=== PATIENT | male | born 1960 | race Caucasian/White ===

== ENCOUNTER 2016-12-04 17:16 | Outpatient (CLI) | payer MEDICAID | END 2016-12-04 17:17 | disposition home or self-care (01) | DX: M79.662 Pain in left lower leg (principal); R22.42 Localized swelling, mass and lump, left lower limb ==

== ENCOUNTER 2017-08-03 10:37 | Outpatient (CLI) | payer MEDICAID ==
--- NOTE | 2017-08-03 11:50 | XRAY Report ---
BILATERAL HIPS AND PELVIS: 08/03/2017 CLINICAL INDICATION: Bilateral deep pain. FINDINGS: Frontal view of the hips and pelvis and frogleg lateral views of the bilateral hips demons trate no evidence of fracture or dislocation. The joint spaces are preserved. No radiopaque foreign b louisa is seen in the soft tissues. IMPRESSION: NORMAL HIPS AND PELVIS. JOB #: [id number] EXT JOB #:[id number]
== END 2017-08-03 10:38 | disposition home or self-care (01) ==
LOC: DI.S 10:37
PROVIDERS: ATTEND Family Medicine
DX: M25.552 Pain in left hip (principal); M25.551 Pain in right hip
CPT/HCPCS: 73521

== ENCOUNTER 2018-04-20 22:48 | Emergency (ER) | payer MEDICAID ==
--- NOTE | 2018-04-21 00:14 | ED Physician Documentation ---
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 patient is right hand dominant. Review of Systems Skin: reports: Laceration (s), Bite / sting Musculoskeletal: reports: Extremity pain Neurologic: denies: Focal weakness, Numbness PD PAST MEDICAL HISTORY - Past Medical History Past Medical History: No - Past Surgical History Past Surgical History: Yes General: Appendectomy Ortho: Arthroscopic surgery - Present Medications Home Medications: Ambulatory Orders Medication Instructions Recorded Confirmed Amox/Clav 875/125 [Augmentin] 1 tab PO BID 04/22/18 04/22/18 Liothyronine Sodium 5 mcg PO BID 04/22/18 04/22/18 - Allergies Allergies/Adverse Reactions: Allergies Allergy/AdvReac Type Severity Reaction Status Date / Time Penicillins Allergy Unknown Verified 04/22/18 15:36 - Social History Does the pt smoke?: No Smoking Status: Never smoker Does the pt drink ETOH?: Yes Does the pt have substance abuse?: No - Immunizations Immunizations are current?: Yes - POLST Patient has POLST: No PD ED PE NORMAL - Vitals Vital signs reviewed: Yes - General General: Alert and oriented X 3, No acute distress, Well developed/nourished - Extremities Extremities: Normal ROM s pain, No edema - Neuro Neuro: No motor deficit, No sensory deficit PD ED PE EXPANDED - Extremities LIZBETH UE/Hands Visual: 1 - laceration (1 cm length) 2 - laceration (1.5 cm length) Results - Vitals Vitals: Oxygen O2 Source Room air Procedures - Laceration (location) Upper extremity left Length in cm: 2.5 (two lacerations, total of 2.5 cm) Wound type: Linear, Into subcut fat, Clean Neurovascular status: Sensory intact, Motor intact, Vascular intact Tendon involvement: Tendon intact Anesthesia: Lidocaine 1% Wound Preparation: Chlorhexadine, Irrigated copiously NS (500 cc sterile NS), Wound explored Skin layer closure: Nylon, Running, Size #-0 - enter number (4-0) Other: Patient tolerated well, No complications, Neurovascular intact, Tetanus UTD Complexity: Simple PD MEDICAL DECISION MAKING - ED course Complexity details: considered differential, d/w patient - Sepsis Event Vital Signs: Oxygen O2 Source Room air Departure - Departure Disposition: 01 Home, Self Care Clinical Impression: Dog bite of arm Qualifiers: Encounter type: initial encounter Laterality: left Qualified Code(s): S41.152A - Open bite of left upper arm, initial encounter Condition: Good Instructions: ED Bite Dog, ED Laceration Ext Sutr Stap Tape Follow-Up: Rosie Velazquez MD [Primary Care Provider] - (7-8 days for suture removal ) Discharge Date/Time: 04/21/18 01:26
[2018-04-21] MEDS ORDERED: AMOX/CLAV 875 MG/125 MG TABLET PO STA (00:26)
[2018-04-21] MEDS ORDERED: LIDOCAINE 1% 2 ML VIAL SUBQ STA (00:26)
[2018-04-21] MEDS ORDERED: BACITRACIN OINT TOP ONE (01:25)
[2018-04-21 01:26] VITALS: BP 123/88
== END 2018-04-21 01:26 | disposition home or self-care (01) ==
LOC: ED 22:48
DX: S51.852A Open bite of left forearm, initial encounter (principal); W54.0XXA Bitten by dog, initial encounter
CPT/HCPCS: 99283

== ENCOUNTER 2018-04-21 15:43 | Emergency (ER) | payer MEDICAID ==
[2018-04-21 16:05] VITALS: BP 148/82
[2018-04-21] MEDS ORDERED: ceFAZolin 1 GM VIAL IM STA (17:11)
--- NOTE | 2018-04-21 17:17 | ED Physician Documentation ---
History of Present Illness - Stated complaint Stated Complaint: SUTURE/DOG BITE IRRITATION - Chief complaint Chief Complaint: Wound - Additonal information Additional information: hx from pt 57 male dog bite seen in ED last night - no EMR note yet per pt was a pet dog and immunized his wound was already a but red and swollen because it was deep it was well irrigated and sutured and pt was warned of risk of infection pt had listed penicillin as an allergy but states he does not actually know what his rxn is, something as a baby, he was given augmentin and tolerated it well he thinks his last tdap was in this ED 2 yr ago returns today for increased redness and streak up his arm no fever Review of Systems Constitutional: denies: Fever Skin: reports: Bite / sting PD PAST MEDICAL HISTORY - Past Surgical History Past Surgical History: Yes General: Appendectomy Ortho: Arthroscopic surgery - Present Medications Home Medications: Ambulatory Orders Medication Instructions Recorded Confirmed Meds For Thyroid 04/20/18 Amox/Clav 875/125 [Augmentin] 1 each PO Q12H #13 tablet 04/21/18 - Allergies Allergies/Adverse Reactions: Allergies Allergy/AdvReac Type Severity Reaction Status Date / Time Penicillins Allergy Unknown Verified 04/20/18 23:14 - Social History Does the pt smoke?: No Smoking Status: Never smoker Does the pt drink ETOH?: Yes Does the pt have substance abuse?: No - Immunizations Immunizations are current?: Yes - POLST Patient has POLST: No PD ED PE NORMAL - Vitals Vital signs reviewed: Yes - Neck Neck: Supple, no meningeal sign - Cardiac Cardiac: RRR - Respiratory Respiratory: No respiratory distress - Extremities Extremities: Other (L FA two sutured bites with surrounding erythema and streaks to mid bicep but no fluctance or drainange) Results - Vitals Vitals: Vital Signs - 24 hr 04/21/18 15:58 Temperature 36.7 C Heart Rate 98 Respiratory 16 Rate Blood Pressure 148/82 H O2 Saturation 97 Oxygen O2 Source Room air PD MEDICAL DECISION MAKING - ED course ED course: MSE performed infected dog bite despite PO antibiotics told pt will try IM ancef, and he should continue PO augmentin but needs rpt exam tomorrow and if not better / worse will need sutures removed , wounds opened to drain and IV antibiotics - Sepsis Event Vital Signs: Vital Signs - 24 hr 04/21/18 15:58 Temperature 36.7 C Heart Rate 98 Respiratory 16 Rate Blood Pressure 148/82 H O2 Saturation 97 Oxygen O2 Source Room air Departure - Departure Disposition: 01 Home, Self Care Clinical Impression: Infected dog bite Condition: Good Instructions: ED Bite Dog Follow-Up: Rosie Velazquez MD [Primary Care Provider] - Comments: The bites have become infected We are going to try giving you a shot of antibiotics. But you need to be seen tomorrow for a recheck If you are not better or are getting worse, the sutures will need to be removed and the wounds opened up to drain and you will need to be admitted for IV antibiotics - For the recheck, you can either see your PMD or come back to the ER to see me any time after 7 AM. But you must be seen early tomorrow Take your next augmentin at midnight and then next at 10 AM to get onto a more reasonable time schedule I checked and the computer records from 2016 state you got a tetanus shot then
== END 2018-04-21 17:32 | disposition home or self-care (01) ==
LOC: ED 15:43
DX: S51.852A Open bite of left forearm, initial encounter (principal); S50.872A Other superficial bite of left forearm, initial encounter; L08.9 Local infection of the skin and subcutaneous tissue, unspecified; W54.0XXA Bitten by dog, initial encounter
CPT/HCPCS: 12001; 96372; 99282; 99283; A9270

== ENCOUNTER 2018-04-22 15:29 | Observation (INO) | payer MEDICAID ==
--- NOTE | 2018-04-22 15:42 | ED Physician Documentation ---
History of Present Illness - Stated complaint Stated Complaint: DOG BITE L ARM - Chief complaint Chief Complaint: General - Additonal information Additional information: hx from pt very nice 57 male biit by another persons immunized pet dog 2 nights ago seen in ED wounds were very copiously irrigated out and because they were so deep and gaping, were sutured pt was placed on prophylactic ab despite excellent wound care and prophylactic ab, his arm became infected I saw him yesterday and he had erythema around the two bites with streaking past the AC region given IM ancef, advised to continue augmentin, and asked to come back and see me today for a recheck advised that if not better with another 24 hr of ab would need sutures removed, wounds broken open, and admit for IV antibitoics he saw him PMD first thing tis AM and again this afternoon at 2 and had progression of sx during that time so returns as requested no fever not diabetic his tdap is UTD Review of Systems Constitutional: denies: Fever, Chills Skin: reports: Bite / sting Musculoskeletal: reports: Extremity pain, Extremity swelling Immunocompromised: denies: Immunocompromised PD PAST MEDICAL HISTORY - Past Surgical History Past Surgical History: Yes General: Appendectomy Ortho: Arthroscopic surgery - Present Medications Home Medications: Ambulatory Orders Medication Instructions Recorded Confirmed Amox/Clav 875/125 [Augmentin] 1 tab PO BID 04/22/18 04/22/18 Liothyronine Sodium 5 mcg PO BID 04/22/18 04/22/18 - Allergies Allergies/Adverse Reactions: Allergies Allergy/AdvReac Type Severity Reaction Status Date / Time Penicillins Allergy Unknown Verified 04/22/18 15:36 - Social History Does the pt smoke?: No Smoking Status: Never smoker Does the pt drink ETOH?: Yes Does the pt have substance abuse?: No - Immunizations Immunizations are current?: Yes - POLST Patient has POLST: No PD ED PE NORMAL - Vitals Vital signs reviewed: Yes - Cardiac Cardiac: RRR - Respiratory Respiratory: No respiratory distress, Clear bilaterally - Extremities Extremities: Other (LUE - 2 bites sutured, large amt of surroundign erythema and edmea, more than yesterday, again streaking to ac region, less notable than yesterday because the area of cellulitis has spread up the arm, MSV intact) Results - Vitals Vitals: Vital Signs - 24 hr 04/22/18 15:34 Temperature 35.9 C L Heart Rate 87 Respiratory 18 Rate Blood Pressure 127/87 H O2 Saturation 98 Oxygen O2 Source Room air - Labs Labs: Microbiology 04/22/18 16:00 Wound Culture - Preliminary Arm - Left Laboratory Tests 04/22/18 04/22/18 16:01 16:01 WBC 9.2 RBC 5.11 Hgb 15.4 Hct 44.8 MCV 87.7 MCH 30.2 MCHC 34.5 RDW 13.3 Plt Count 255 MPV 7.4 Neut # (Auto) 5.7 Lymph # (Auto) 2.4 Toombs # (Auto) 0.9 Eos # (Auto) 0.1 Baso # (Auto) 0.1 Absolute Nucleated RBC 0.01 Nucleated RBC % 0.1 Sodium 136 Potassium 4.3 Chloride 102 Carbon Dioxide 25 Anion Gap 9.0 BUN 19 Creatinine 1.1 Estimated GFR (MDRD) 69 L Glucose 151 H Calcium 9.3 PD MEDICAL DECISION MAKING - ED course ED course: all 4 sutures removed, 2 from each wound, several cc of pus from each bit, sent for cx, will irrigate the bites again given IV unasyn will admit spoke to hospitalist at 1600 - Sepsis Event Vital Signs: Vital Signs - 24 hr 04/22/18 15:34 Temperature 35.9 C L Heart Rate 87 Respiratory 18 Rate Blood Pressure 127/87 H O2 Saturation 98 Oxygen O2 Source Room air Departure - Departure Disposition: ED Place in Observation Clinical Impression: Infected dog bite Condition: Good Discharge Date/Time: 04/22/18 17:55
[2018-04-22] MEDS ORDERED: AMPICILLIN/SULBACTAM 3 GM in SODIUM CHLORIDE 0.9% MINIBAG 100 ML IV STA (15:55)
[2018-04-22 16:10] LABS: BASOPHILS # (AUTO) 0.1 10^3/uL (0.0-0.1); BASOPHILS % (AUTO) 0.7 %; EOSINOPHILS # (AUTO) 0.1 10^3/uL (0.0-0.7); EOSINOPHILS % (AUTO) 1.3 %; HGB - HEMOGLOBIN 15.4 g/dL (14.0-18.0); LYMPHOCYTES # (AUTO) 2.4 10^3/uL (1.5-3.5); LYMPHOCYTES % (AUTO) 25.8 %; MEAN CORPUSCULAR HEMOGLOBIN 30.2 pg (27.0-31.0); MEAN CORPUSCULAR HGB CONC 34.5 g/dL (32.0-36.0); MEAN CORPUSCULAR VOLUME 87.7 fL (80.0-94.0); MEAN PLATELET VOLUME 7.4 fL (7.4-11.4); MONOCYTES # (AUTO) 0.9 10^3/uL (0.0-1.0); MONOCYTES % (AUTO) 9.9 %; NEUTROPHILS # (AUTO) 5.7 10^3/uL (1.5-6.6); NEUTROPHILS % (AUTO) 62.3 %; PLT - PLATELET COUNT 255 10^3/uL (130-450); RED BLOOD COUNT 5.11 10^6/uL (4.70-6.10); RED CELL DISTRIBUTION WIDTH 13.3 % (12.0-15.0); WHITE BLOOD COUNT 9.2 x10^3/uL (4.8-10.8)
[2018-04-22 16:25] LABS: CALCIUM 9.3 mg/dL (8.5-10.3); CREATININE 1.1 mg/dL (0.6-1.2)
[2018-04-22] MEDS ORDERED: ONDANSETRON 4 MG/2 ML VIAL IVP PRN (16:50)
[2018-04-22] MEDS ORDERED: MORPHINE 2 MG/ML SYRINGE IVP PRN (16:50)
[2018-04-22] MEDS ORDERED: ACETAMINOPHEN 325 MG TABLET PO PRN (16:50)
--- NOTE | 2018-04-22 16:59 | HISTORY & PHYSICAL EXAMINATION ---
Chief Complaint - Chief Complaint Chief Complaint: dog bite wound infection History of Present Illness - Admitted From Admitted From:: ER - History Obtained From History obtained from: pt - History of Present Illness HPI Comment/Other: Mr. Cordero is 57-yrs-old male who present ER for wound infection which was bite by two dogs. Pt reports his left hand was bite by two dogs two days ago. He went ER and his PCP office. He was prescribed oral antibiotics, and had wound sutured in ER. Today he came to ER again for worsening of infection. He report he has a bit of chill, denies fever. Pt state he knows both dogs had immunizations, rabies free. ER provider's note report pt's DTap is updated. Pt report the swelling of his left hand is significantly reduced after treated in ER today by IV of Unasyn, but is still erythema on left hand. pt is admitted in observation for evaluation and treatment of cellulitis. History - Past Medical History MRSA Hx?: No - Past Surgical History General: reports: Appendectomy Ortho: reports: Arthroscopic surgery - Family & Social History Family History: Mother: Alive and Well, CAD, Diabetes, Type 2, Father: Alive and Well, COPD/Emphysema, Diabetes, Type 2 Family History Comment/Other: pt is living with his at [facility], he has one child Living arrangement: At home Living Situation: With spouse/s.o. - POLST Patient has POLST: No POLST Status: Full Code Meds/Allgy - Home Medications Home Medications: Ambulatory Orders Medication Instructions Recorded Confirmed Amox/Clav 875/125 [Augmentin] 1 tab PO BID 04/22/18 04/22/18 Liothyronine Sodium 5 mcg PO BID 04/22/18 04/22/18 - Allergies Allergies/Adverse Reactions: Allergies Allergy/AdvReac Type Severity Reaction Status Date / Time Penicillins Allergy Unknown Verified 04/22/18 15:36 Review of Systems - Constitutional Constitutional: denies: Fatigue, Fever, Chills, Malaise, Weakness, Poor appetite , Diaphoresis, Night sweats - Eyes Eyes: denies: Pain, Irritation, Amaurosis, Blurred vision, Spots in vision, Field loss, Vision loss, Dipolpia - Ears, Nose & Throat Ears, Nose & Throat: denies: Ear pain, Hearing loss, Hearing aids, Tinnitus, Vertigo, Nasal pain, Nasal discharge, Nosebleeds, Nasal obstruction, Nasal congestion, Postnasal drainage, Dentures, Sore throat, Hoarseness, Mouth lesions , Bleeding gums, Dental decay, Dental pain - Cardiovascular Cariovascular: denies: Irregular heart rate, Palpitations, Chest pain, Edema, Lightheadedness, Syncope, Exertional dyspnea, Decr. exercise tolerance - Respiratory Respiratory: denies: Cough, Sputum production, Wheezing, Snoring, Hemoptysis, Orthopnea, SOB at rest, SOB with exertion - Gastrointestinal Gastrointestinal: denies: Abdominal pain, Abdominal distention, Constipation, Diarrhea, Change in bowel habits, Rectal bleeding, Black stools, Bloody stools, Nausea, Vomiting, Bile emesis, Maurilio blood emesis, Coffee grounds emesis, Reflux /heartburn, Bloating, Poor appetite, Other - Genitourinary Genitourinary: denies: Dysuria, Frequency, Urgency, Hematuria, Incontinence, Flank pain, Nocturia - Musculoskeletal Musculoskeletal: denies: Muscle pain, Back pain, Muscle aches, Stiffness, Limited range of motion, Muscle weakness, Gout, Joint pain - Integumentary Integumentary: reports: Rash. denies: Pruritis, Lesions, Dryness, Lumps, Acne, Pigment changes, Nail changes, Hair changes, Other - Neurological Neurological: denies: General weakness, Focal weakness, Headache, Dizziness, Numbness, Memory problems, Pre-existing deficit, Abnormal gait, Seizures, Incoordination, Slurred speech - Psychiatric Psychiatric: denies: Depression, Anxiety, Suicidal, Delusions, Hallucinations, Homicidal - Endocrine Endocrine: denies: Polyuria, Polydypsia, Polyphagia, Intolerance to cold - Hematologic/Lymphatic Hematologic/Lymphatic: denies: Anemia, Bruising, Petechiae, Blood clots, Lymphadenopathy, Bleeding tendencies Exam - Vital Signs Reviewed Vital Signs: Yes Vital Signs: Vital Signs x48h Temp Pulse Resp BP Pulse Ox 04/22/18 15:34 35.9 C L 87 18 127/87 H 98 - Physical Exam General Appearance: positive: No acute distress, Alert. negative: Lethargic Eyes Bilateral: positive: Normal inspection, PERRL, No lid inflammation, Conjunctivae nml ENT: positive: ENT inspection nml, Pharynx nml, No signs of dehydration. negative: Purulent nasal drainage, Pharyngeal erythema, Oral lesions Neck: positive: Nml inspection, Thyroid nml, No JVD, Trachea midline. negative : Thyromegaly, Lymphadenopathy (R), Lymphadenopathy (L), Stiff neck, Carotid bruit, Swelling/bruising, Tracheal deviation Respiratory: positive: Chest non-tender, No respiratory distress, Breath sounds nml. negative: Wheezes, Rales, Rhonchi Cardiovascular: positive: Regular rate & rhythm, No murmur, No gallop. negative : Irregularly irregular, Extrasystoles, Tachycardia, Bradycardia, JVD present, Systolic murmur, Diastolic murmur Peripheral Pulses: positive: 2+ Abdomen: positive: Non-tender, No organomegaly, Nml bowel sounds, No distention. negative: Tenderness, Guarding, Rebound Back: positive: Nml inspection. negative: CVA tenderness (R), CVA tenderness (L ) Skin: positive: Color nml, Warm, Dry, Skin rash, Laceration (cm). negative: Cyanosis, Diaphoresis, Pallor Extremities: positive: Non-tender, Full ROM. negative: Calf tenderness, Joint swelling, Jhoana's sign/cords Neurologic/Psychiatric: positive: Oriented x3, Motor nml, Sensation nml, Mood/ affect nml. negative: Weakness, Sensory loss, Facial droop, Slurred/abnml speech, Depressed mood/affect Conclusion/Plan - Problem List (1) Infected dog bite Conclusion/Plan: pt know two dogs had immunization, rabies free. Pt's TDap is updated. continue Unasyn IV for pt lab and vital monitor IVF of NS (2) DVT prophylaxis Conclusion/Plan: SCD (3) Full code status Conclusion/Plan: pt request full code - Lab Results Fish Bones: 04/23/18 06:11 04/23/18 06:11 Core Measures - Anticipated LOS I expect patient to be DC'd or transferred within 96 hours.: Yes - DVT/VTE - Prophylaxis VTE/DVT Device ordered at admit?: Yes VTE/DVT Prophylaxis med ordered at admit?: Yes
[2018-04-22] MEDS ORDERED: AMPICILLIN/SULBACTAM 3 GM in SODIUM CHLORIDE 0.9% MINIBAG 100 ML IV SCH (18:00)
[2018-04-22] MEDS: SODIUM CHLORIDE 0.9% 1,000 ML IV SCH (18:05)
[2018-04-22] MEDS: SODIUM CHLORIDE FLUSH 0.9% 10 ML SYRINGE IVP SCH (18:05)
[2018-04-22] MEDS: AMPICILLIN/SULBACTAM 3 GM in SODIUM CHLORIDE 0.9% MINIBAG 100 ML IV SCH (21:28)
[2018-04-23] MEDS: SODIUM CHLORIDE FLUSH 0.9% 10 ML SYRINGE IVP SCH ×3 (00:02→15:50)
[2018-04-23] MEDS: SODIUM CHLORIDE 0.9% 1,000 ML IV SCH (03:49)
[2018-04-23] MEDS: AMPICILLIN/SULBACTAM 3 GM in SODIUM CHLORIDE 0.9% MINIBAG 100 ML IV SCH ×4 (03:49→21:32)
[2018-04-23 06:21] LABS: BASOPHILS # (AUTO) 0.1 10^3/uL (0.0-0.1); BASOPHILS % (AUTO) 0.7 %; EOSINOPHILS # (AUTO) 0.1 10^3/uL (0.0-0.7); HGB - HEMOGLOBIN 14.6 g/dL (14.0-18.0); LYMPHOCYTES # (AUTO) 2.2 10^3/uL (1.5-3.5); LYMPHOCYTES % (AUTO) 29.3 %; MEAN CORPUSCULAR HEMOGLOBIN 30.1 pg (27.0-31.0); MEAN CORPUSCULAR HGB CONC 34.2 g/dL (32.0-36.0); MEAN CORPUSCULAR VOLUME 87.9 fL (80.0-94.0); MEAN PLATELET VOLUME 7.3 fL (7.4-11.4); MONOCYTES # (AUTO) 0.8 10^3/uL (0.0-1.0); NEUTROPHILS # (AUTO) 4.2 10^3/uL (1.5-6.6); PLT - PLATELET COUNT 232 10^3/uL (130-450); RED BLOOD COUNT 4.86 10^6/uL (4.70-6.10); RED CELL DISTRIBUTION WIDTH 13.4 % (12.0-15.0); WHITE BLOOD COUNT 7.4 x10^3/uL (4.8-10.8)
[2018-04-23 06:34] LABS: ALBUMIN 3.6 g/dL (3.2-5.5); ALBUMIN/GLOBULIN RATIO 1.1 (1.0-2.2); BILIRUBIN,TOTAL 0.9 mg/dL (0.2-1.0); CALCIUM 8.6 mg/dL (8.5-10.3); CREATININE 0.9 mg/dL (0.6-1.2); MAGNESIUM 2.1 mg/dL (1.7-2.8); TOTAL PROTEIN 6.9 g/dL (6.7-8.2)
[2018-04-23] MEDS: ENOXAPARIN 40 MG/0.4 ML SYRINGE SUBQ SCH (10:02)
[2018-04-23] MEDS: FAMOTIDINE 20 MG TABLET PO SCH (10:02)
[2018-04-23] MEDS: POLYETHYLENE GLYCOL 3350 17 GM PACKET PO SCH (10:03)
[2018-04-23] MEDS: amLODIPine 5 MG TABLET PO SCH (14:22)
--- NOTE | 2018-04-23 16:26 | PROVIDER PROGRESS NOTE ---
Subjective - Prog Note Date Prog Note Date: 04/23/18 Prog Note Time: 16:25 - Subjective Pt reports feeling: No change Subjective: Dexter continues to have discomfort when moving his left hand and forearm. He denies new symptoms such as fevers, chills, shortness of breath, chest pain, nausea, vomiting, or a new cough. He is agreeable to a left arm MRI. Current Medications - Current Medications Current Medications: Active Medications Acetaminophen (Tylenol) 650 mg PO Q4HR PRN PRN Reason: Pain 1 to 4 Amlodipine Besylate (Norvasc) 5 mg PO DAILY [facility] Last Admin: 04/23/18 14:22 Dose: 5 mg Enoxaparin Sodium (Lovenox) 40 mg SUBQ DAILY [facility] Last Admin: 04/23/18 10:02 Dose: 40 mg Famotidine (Pepcid) 20 mg PO DAILY [facility] Last Admin: 04/23/18 10:02 Dose: 20 mg Ampicillin Sodium/Sulbactam (Sodium 3 gm/ Sodium Chloride) 100 mls @ 200 mls/ hr IV Q6H [facility] Last Infusion: 04/23/18 15:50 Dose: Infused Metronidazole (Flagyl 500 Mg/100 Ml) 500 mg in 100 mls @ 100 mls/hr IV Q8H [facility] Morphine Sulfate (Morphine) 2 mg IVP Q2H PRN PRN Reason: Pain 8 to 10 Ondansetron HCl (Zofran Inj) 4 mg IVP Q6HR PRN PRN Reason: Nausea / Vomiting Polyethylene Glycol (Miralax) 17 gm PO DAILY [facility] Last Admin: 04/23/18 10:03 Dose: Not Given Sodium Chloride (Normal Saline Flush 0.9%) 10 ml IVP PRN PRN PRN Reason: NEEDED PER PROVIDER ORDERS Sodium Chloride (Normal Saline Flush 0.9%) 10 ml IVP 0100,0900,1700 [facility] Last Admin: 04/23/18 15:50 Dose: 10 ml Amox/Clav 875/125 [Augmentin] 1 tab PO BID 04/22/18 Liothyronine Sodium 5 mcg PO BID 04/22/18 Objective - Vital Signs/Intake & Output Reviewed Vital Signs: Yes Vital Signs: Vital Signs x48h Temp Pulse Resp BP Pulse Ox 04/23/18 13:00 37.2 C 85 16 149/108 H 98 Intake & Output: Intake & Output 04/20/18 04/21/18 04/22/18 04/23/18 23:59 23:59 23:59 23:59 Intake Total 200 2893.333 Output Total 1 1155 Balance 199 1738.333 - Objective General Appearance: positive: No acute distress, Alert Eyes Bilateral: positive: Normal inspection, PERRL ENT: positive: ENT inspection nml, Pharynx nml, No signs of dehydration Neck: positive: Nml inspection, Thyroid nml, No JVD, Trachea midline Respiratory: positive: Chest non-tender, No respiratory distress, Breath sounds nml Cardiovascular: positive: Regular rate & rhythm, Systolic murmur (faint) Peripheral Pulses: 2+ Radial (R), 2+ Radial (L) Abdomen: positive: Non-tender, Nml bowel sounds, Other (rounded) Back: positive: Nml inspection Skin: positive: No rash, Warm, Dry Extremities: positive: Non-tender, Full ROM, Nml appearance, No pedal edema Neurologic/Psychiatric: positive: Oriented x3, CN's nml (2-12), Motor nml, Sensation nml, Weakness, Other (disorganized thoughts at times.) Reflexes: Bicep (R): 3+, Bicep (L): 3+ - Lab Results Fish Bones: 04/23/18 06:11 04/23/18 06:11 Other Labs: Lab Results x24hrs 04/23/18 04/23/18 04/23/18 Range/Units 06:11 06:11 06:11 WBC 7.4 (4.8-10.8) x10^3/uL RBC 4.86 (4.70-6.10) 10^6/uL Hgb 14.6 (14.0-18.0) g/dL Hct 42.7 (42.0-52.0) % MCV 87.9 (80.0-94.0) fL MCH 30.1 (27.0-31.0) pg MCHC 34.2 (32.0-36.0) g/dL RDW 13.4 (12.0-15.0) % Plt Count 232 (130-450) 10^3/uL MPV 7.3 L (7.4-11.4) fL Neut # (Auto) 4.2 (1.5-6.6) 10^3/uL Lymph # (Auto) 2.2 (1.5-3.5) 10^3/uL Mcdowell # (Auto) 0.8 (0.0-1.0) 10^3/uL Eos # (Auto) 0.1 (0.0-0.7) 10^3/uL Baso # (Auto) 0.1 (0.0-0.1) 10^3/uL Absolute Nucleated RBC 0.01 x10^3/uL Nucleated RBC % 0.1 /100WBC Sodium 139 (135-145) mmol/L Potassium 4.1 (3.5-5.0) mmol/L Chloride 110 (101-111) mmol/L Carbon Dioxide 25 (21-32) mmol/L Anion Gap 4.0 L (6-13) BUN 18 (6-20) mg/dL Creatinine 0.9 (0.6-1.2) mg/dL Estimated GFR (MDRD) 87 L (>89) Glucose 110 H (70-100) mg/dL Calcium 8.6 (8.5-10.3) mg/dL Magnesium 2.1 (1.7-2.8) mg/dL Total Bilirubin 0.9 (0.2-1.0) mg/dL AST 18 (10-42) IU/L ALT 22 (10-60) IU/L Alkaline Phosphatase 42 (42-121) IU/L Total Protein 6.9 (6.7-8.2) g/dL Albumin 3.6 (3.2-5.5) g/dL Globulin 3.3 (2.1-4.2) g/dL Albumin/Globulin Ratio 1.1 (1.0-2.2) TSH 2.25 (0.34-5.60) uIU/mL ABX Reporting Has patient been on IV antibiotics over the past 48 hours?: Yes Assessment/Plan - Problem List (1) Cellulitis of left forearm Impression: The patient was seen and treated using oral antibiotic as an outpatient, that is considered to be a failed treatment. The patient has at least 3 puncture type wounds without drainage that is being treated with Unasyn IV, but after re- examination near the end of the day, the wounds are unchanged with increased redness. I have added IV metronidazole to his IV Unasyn and ordered a Left forearm MRI without contrast to look for tendon and/or bone involvement. A wound culture was obtained, and shows no growth. Plan: Continue to monitor, treat pain, continue IV antibiotics, and await MRI results. (2) Hypertension Impression: The patient denies a previous diagnosis of this, but has been running high today. The last recorded reading was 149/108, so I have started Norvasc 5 mg PO daily. Plan: Continue to monitor and consider ongoing treatment if B/P remains elevated. Qualifiers: Hypertension type: essential hypertension Qualified Code(s): I10 - Essential (primary) hypertension
[2018-04-23] MEDS: metroNIDAZOLE 500 MG/100 ML 500 MG/100 ML BAG IV SCH (17:05)
[2018-04-23] MEDS: LIOTHYRONINE 5 MCG TABLET PO SCH (21:32)
[2018-04-24] MEDS: metroNIDAZOLE 500 MG/100 ML 500 MG/100 ML BAG IV SCH ×2 (00:32→09:59)
[2018-04-24] MEDS: SODIUM CHLORIDE FLUSH 0.9% 10 ML SYRINGE IVP SCH ×2 (00:32→10:00)
[2018-04-24] MEDS: SODIUM CHLORIDE FLUSH 0.9% 10 ML SYRINGE IVP PRN ×2 (00:32→04:05)
[2018-04-24] MEDS: AMPICILLIN/SULBACTAM 3 GM in SODIUM CHLORIDE 0.9% MINIBAG 100 ML IV SCH ×2 (04:05→11:13)
[2018-04-24 06:27] LABS: BASOPHILS % (AUTO) 0.7 %; EOSINOPHILS # (AUTO) 0.2 10^3/uL (0.0-0.7); EOSINOPHILS % (AUTO) 2.9 %; LYMPHOCYTES # (AUTO) 2.3 10^3/uL (1.5-3.5); MEAN CORPUSCULAR HEMOGLOBIN 30.2 pg (27.0-31.0); MEAN CORPUSCULAR HGB CONC 34.1 g/dL (32.0-36.0); MEAN CORPUSCULAR VOLUME 88.6 fL (80.0-94.0); MEAN PLATELET VOLUME 7.3 fL (7.4-11.4); MONOCYTES # (AUTO) 0.8 10^3/uL (0.0-1.0); MONOCYTES % (AUTO) 12.2 %; NEUTROPHILS % (AUTO) 47.2 %; PLT - PLATELET COUNT 225 10^3/uL (130-450); RED BLOOD COUNT 4.98 10^6/uL (4.70-6.10); RED CELL DISTRIBUTION WIDTH 13.2 % (12.0-15.0); WHITE BLOOD COUNT 6.3 x10^3/uL (4.8-10.8)
[2018-04-24 06:52] LABS: ALBUMIN 3.6 g/dL (3.2-5.5); ALBUMIN/GLOBULIN RATIO 1.1 (1.0-2.2); BILIRUBIN,TOTAL 0.8 mg/dL (0.2-1.0); CALCIUM 8.9 mg/dL (8.5-10.3); CRP - C-REACTIVE PROTEIN 1.7 mg/dL (0-1.0); TOTAL PROTEIN 6.9 g/dL (6.7-8.2)
[2018-04-24] MEDS: amLODIPine 5 MG TABLET PO SCH ×2 (09:59→10:00)
[2018-04-24] MEDS: FAMOTIDINE 20 MG TABLET PO SCH ×2 (09:59→10:04)
[2018-04-24] MEDS: LIOTHYRONINE 5 MCG TABLET PO SCH (09:59)
[2018-04-24] MEDS: POLYETHYLENE GLYCOL 3350 17 GM PACKET PO SCH (10:00)
[2018-04-24] MEDS: ENOXAPARIN 40 MG/0.4 ML SYRINGE SUBQ SCH (10:09)
--- NOTE | 2018-04-24 10:47 | Discharge Plan ---
Discharge Plan Disposition: Home, Self Care Condition: Good Prescriptions: amLODIPine [Norvasc] 5 mg PO DAILY #30 tablet levoFLOXacin [Levofloxacin] 500 mg PO DAILY 10 Days #10 tablet levoFLOXacin [Levaquin] 250 mg PO ONCE 10 Days #10 tablet Metronidazole [Flagyl] 500 mg PO Q8H 10 Days #30 tablet Saccharomyces Boulardii [Florastor] 250 mg PO BID 14 Days #28 capsule Diet: Regular Activity Restrictions: No Restrictions Shower Restrictions: No Driving Restrictions: No Weight Bearing: Full Weight Additional Instructions or Follow Up instructions: You were admitted after failed out patient treatment for a left forearm dog bite. You were given 2 types of IV antibiotics, that are changed to an oral form and to be taken for another 10 days. A left arm MRI is pending. This was ordered to ensure that no other tissues have been injured and show no signs of infection. Your blood pressure was generally running high, so you were started on a calcium channel nadia called Norvasc at 5 mg daily. Please continue this daily dose, and follow up with your PCP within one week. No Smoking: If you smoke, Please STOP! Call for help. Follow-up with: Rosie Velazquez MD [Primary Care Provider] -
--- NOTE | 2018-04-24 11:08 | DISCHARGE SUMMARY ---
Discharge Summary Admit Date: 04/22/18 Discharge Date: 04/24/18 Discharging Provider: DANIEL Yancey Primary Care Provider: Marcus Code Status: Attempt Resuscitation Condition at Discharge: Good Discharge Disposition: 01 Home, Self Care - DIAGNOSES Admission Diagnoses: Cellulitis, unspecified (L03.90) Hypothyroidism, unspecified (E03.9) Discharge Diagnoses with Status of Each Condition: Cellulitis (L03.90) new on this admit, treatment to continue. Hypothyroidism (E03.9) chronic, stable. Hypertension (I10) new, treatment to continue. - HPI History of Present Illness: Иван Cordero is a 57-year old male who presented to the ER for wound infection which developed after being accidentally bit by a large dog that was not his. The patient reports his left hand was bitten by a large dog two days ago. He went ER and his PCP office. He was prescribed oral antibiotics, and had wound sutured in ER. Today he returned to the ER again for worsening of infection. He reports chills, denies fever. The patient was able to locate the setter machine of the dog to confirm vaccination status. ER provider's note reports pt's DTap is updated. Pt reports the swelling of his left hand is significantly reduced after treated in ER today by IV of Unasyn, but is still has erythema and pain on left hand. pt is admitted in observation for evaluation and treatment of cellulitis. - HOSPITAL COURSE Hospital Course: (1) Cellulitis of left forearm The patient was seen and treated using oral antibiotic as an outpatient, that is considered to be a failed treatment. The patient has at least 3 puncture type wounds without drainage that is being treated with Unasyn IV, but after re- examination near the end of the day, the wounds are unchanged with increased redness. I have added IV metronidazole to his IV Unasyn and ordered a Left forearm MRI without contrast to look for tendon and/or bone involvement. A wound culture was obtained, and shows no growth. The patient was monitored for worsening of symptoms, treated for pain, and was kept on IV antibiotics. The MRI did not occur, despite being ordered at the time of admission, since it was not put as "STAT". This was very disappointing since this would have helped predict the best length of treatment. Prescriptions were sent to the pharmacy, and the patient was encouraged to get an MRI out patient that needs to be ordered by PCP. (2) Hypertension The patient denies a previous diagnosis of this, but has been running high today. The last recorded reading was 149/108, so I have started Norvasc 5 mg PO daily. A prescription was sent to the pharmacy to be taken at home with PCP follow up. - ALLERGIES Allergies/Adverse Reactions: Allergies Allergy/AdvReac Type Severity Reaction Status Date / Time Penicillins Allergy Unknown Verified 04/22/18 15:36 - MEDICATIONS Home Medications: Ambulatory Orders Medication Instructions Recorded Confirmed Liothyronine Sodium 5 mcg PO BID 04/22/18 04/23/18 Metronidazole [Flagyl] 500 mg PO Q8H 10 Days #30 tablet 04/24/18 Saccharomyces Boulardii [Florastor] 250 mg PO BID 14 Days #28 capsule 04/24/18 amLODIPine [Norvasc] 5 mg PO DAILY #30 tablet 04/24/18 levoFLOXacin [Levaquin] 250 mg PO ONCE 10 Days #10 tablet 04/24/18 levoFLOXacin [Levofloxacin] 500 mg PO DAILY 10 Days #10 tablet 04/24/18 - LABS Result Diagrams: 04/24/18 06:10 04/24/18 06:10
[2018-04-24 13:05] VITALS: BP 104/61
== END 2018-04-24 15:10 | disposition home or self-care (01) ==
LOC: ED 15:29 → OBS 16:50
PROVIDERS: ADMIT Nurse Practitioner Gerontology; ATTEND Nurse Practitioner
DX: S61.452A Open bite of left hand, initial encounter (principal); L03.114 Cellulitis of left upper limb; W54.0XXA Bitten by dog, initial encounter; I10 Essential (primary) hypertension; E03.9 Hypothyroidism, unspecified; Z79.2 Long term (current) use of antibiotics
CPT/HCPCS: 36415; 80048; 80053; 83735; 84443; 85025; 85651; 86140; 87040; 87070; 87205; 96361; 96365; 96366; 96367; 96372; 99283; 99284; A9270; G0378; J1650; 96360

== ENCOUNTER 2021-11-01 15:44 | Outpatient (CLI) | payer OTHER ==
--- NOTE | 2021-11-01 16:44 | XRAY Report ---
PROCEDURE: Hand 3 View BILAT INDICATIONS: Bilateral finger swelling TECHNIQUE: 3 views of both hand(s) acquired. COMPARISON: X-ray right wrist, 10/20/2015. FINDINGS: No fractures or dislocations. There is joint space narrowing in multiple interphalangeal j oints laterally. Subtle periarticular erosion at the base of the left fourth and fifth middle phalang es at the fourth and fifth proximal interphalangeal joints with associated periarticular soft tissue swelling.. IMPRESSION: 1. Mild osteoarthritic changes bilaterally. Bony erosions and periarticular soft tissue swelling at t he left fourth and fifth proximal interphalangeal joints suggest inflammatory arthritis such as erosi ve OA. Recommend clinical correlation. Reviewed by: Morris Cobos MD on 11/01/2021 4:43 PM PST Approved by: Morris Cobos MD on 11/01/2021 4:43 PM PST Station ID: [id number]
== END 2021-11-01 15:45 | disposition home or self-care (01) ==
LOC: DI.S 15:44
PROVIDERS: ATTEND Physician Assistant
DX: M19.042 Primary osteoarthritis, left hand (principal); M19.041 Primary osteoarthritis, right hand; M85.842 Other specified disorders of bone density and structure, left hand; M85.841 Other specified disorders of bone density and structure, right hand

== ENCOUNTER 2023-10-20 14:44 | Outpatient (CLI) | payer OTHER | END 2023-10-20 23:59 | disposition EMS.NT | LOC: EMS 14:44 | DX: S00.81XA Abrasion of other part of head, initial encounter (principal); S80.211A Abrasion, right knee, initial encounter; W01.0XXA Fall on same level from slipping, tripping and stumbling without subsequent striking against object, initial encounter; Y93.01 Activity, walking, marching and hiking; Y92.414 Local residential or business street as the place of occurrence of the external cause ==